=== PATIENT | male | born 1990 | race Caucasian/White ===

== ENCOUNTER 2018-08-30 14:46 | Emergency (ER) | payer OTHER ==
[2018-08-30 14:57] VITALS: BP 136/77; PULSE 82; RESP 20; TEMP 98.1; O2SAT 96
--- NOTE | 2018-08-30 15:19 | C.PDOC ---
History Of Present Illness 27 y/o male comes to ed with swelling and pain to lateral left ankle. pt reports he twisted it and fell yesterday while playing basketball. pt took nothing for pain. denies any other injuries. Time Seen by Provider: 08/30/18 15:08 Chief Complaint (Nursing): Lower Extremity Problem/Injury History Per: Patient History/Exam Limitations: no limitations Onset/Duration Of Symptoms: Hrs Current Symptoms Are (Timing): Still Present Recent travel outside of the [place]: No Additional History Per: Patient - Ankle/Foot Description Of Injury: Twisted Currently Unable To: Bear Weight Past Medical History Reviewed: Historical Data, Nursing Documentation, Vital Signs Vital Signs: Last Vital Signs Temp 98.1 F 08/30/18 14:55 Pulse 82 08/30/18 14:55 Resp 20 08/30/18 14:55 BP 136/77 08/30/18 14:55 Pulse Ox 96 08/30/18 14:55 - Medical History PMH: No Chronic Diseases Surgical History: No Surg Hx Family History: States: Unknown Family Hx - Social History Hx Alcohol Use: Yes Hx Substance Use: No - Immunization History Hx Tetanus Toxoid Vaccination: No Hx Influenza Vaccination: No Hx Pneumococcal Vaccination: No Review Of Systems Constitutional: Negative for: Fever, Chills Musculoskeletal: Positive for: Leg Pain, Foot Pain. Negative for: Back Pain Skin: Negative for: Rash Neurological: Negative for: Weakness, Numbness Physical Exam - Physical Exam Appears: Non-toxic, No Acute Distress Skin: Warm, Dry Head: Atraumatic, Normacephalic Eye(s): bilateral: Normal Inspection Neck: No Midline Cervical Tenderness, Supple Extremity: Normal ROM (of left ankle, knee and hip), Tenderness (left lateral malleolus), No Pedal Edema, Capillary Refill (< 2 seconds), Swelling (mild lateral left malleolus swelling) Pulses: Left Dorsalis Pedis: Normal, Right Dorsalis Pedis: Normal Neurological/Psych: Oriented x3, Normal Speech, Normal Cognition ED Course And Treatment O2 Sat by Pulse Oximetry: 96 (On RA) Pulse Ox Interpretation: Normal - Other Rad Left foot X-Ray X-Ray: Interpreted by Me, Viewed By Me Interpretation: No fracture or dislocation Orthopedic Time Performed: 16:30 Time Out: Side verified, Site verified, Patient ID confirmed Procedure: Splint Type: Short, Posterior Location: Left, Leg Consent obtained: Verbal Performed by: Mid-level Provider (done by CP, checked by me) Diagnosis: Sprain Location: Left, Lateral Bone: Malleolus Capillary refill: Normal Distal Sensation: Normal Distal Motor Function: Normal Capillary Refill: Normal Compartment: Soft Distal Sensation: Normal Distal Motor Function: Normal Medical Decision Making Medical Decision Making: no fx on xray, posterior splint applied by CP Nehemias and crutches given, d;c home with podiatry f/u Disposition Counseled Patient/Family Regarding: Studies Performed, Diagnosis, Need For Followup, Rx Given - Disposition Referrals: [facility] [Outside] Podiatry Clinic [Outside] Disposition: HOME/ ROUTINE Disposition Time: 17:18 Condition: GOOD Additional Instructions: No weight bearing. use crutches. Keep left foot elevated whenever possible. Follow up with podiatry on Sunday at [facility] (open 12-pm - 4 pm) f possible. Keep splint clean and dry, cover with plastic when bathing. Ibuprofen for ain. Cold compress over splint. . Prescriptions: Ibuprofen [Motrin] 600 mg PO TID #30 tab Instructions: Ankle Sprain (DC) Forms: [facility] ([place]ian), General Discharge Instructions - Clinical Impression Clinical Impression: Left ankle sprain
--- NOTE | 2018-08-30 16:31 | RAD ---
Date of service: 08/30/2018 PROCEDURE: Left Ankle Radiographs. HISTORY: twisted. swollen and painful COMPARISON: None available. FINDINGS: BONES: Bone alignment and mineralization are normal. There is no acute displaced fracture or bone destruction. JOINTS: Normal. Ankle mortise maintained. Talar dome intact SOFT TISSUES: There is mild lateral soft tissue swelling. OTHER FINDINGS: None. IMPRESSION: No acute fracture or dislocation. Mild lateral soft tissue swelling.
== END 2018-08-30 17:30 | disposition home or self-care (01) ==
LOC: C.ER 14:46
DX: S93.402A Sprain of unspecified ligament of left ankle, initial encounter (principal); W18.30XA Fall on same level, unspecified, initial encounter; Y93.67 Activity, basketball